=== PATIENT | female | born 1945 | race Caucasian/White ===

== ENCOUNTER 2022-12-29 06:57 | Day surgery (SDC) | payer MEDICARE, SELFPAY ==
--- NOTE | 2022-12-29 06:40 | HPE_ITS ---
Assessment and Plan Assessment and plan (1) Nuclear age-related cataract, left eye: Status: Acute Assessment and plan: Assessment: Visually significant cataract of the left eye. Plan: Cataract extraction with lens implantation of the left eye. History of Present Illness History of Present Illness Chief Complaint: Decreased vision, left eye Narrat mariel: The patient is a 76-year-old lady with history of progressive decreased vision of the left eye. She has previously undergone cataract surgery in the right eye at another location. She notes decreased vision at both distance and near with significant glare at night. She also has trouble doing near tasks such as cross stitching. On examination she was noted to have moderate nuclear cataract in the left eye with significant glare disability. The option of cataract surgery was offered to the patient and she wished to proceed. Review of Systems All systems reviewed & are unremarkable except as noted in HPI and below PFSH All Active Problems Nuclear age-related cataract, left eye (Acute) Medical History History of radioactive iodine thyroid ablation Hypothyroidism H/O fibromyositis Joint pain Varicose vein of leg Insomnia Psychophysiologis insomnia, sleep disorder Hypertension Hyperlipemia GERD (gastroesophageal reflux disease) Edema Dyspnea on exertion Diverticul disease small and large intestine, no perforati or abscess Disorder of magnesium metabolism Afib Anxiety Allergic rhinitis Surgical History History of tubal ligation History of tonsillectomy History of uterine suspension procedure H/O knee surgery H/O varicose vein ligation left leg S/P cataract surgery right eye History of colonoscopy Social History Smoking/Tobacco Use Status: Never Smoking risk assessment performed?: Yes Alcohol Intake: current Alcohol Intake frequency: holidays/special occasions only Alcohol type: wine Drug use: Never Substance use type: does not use Housing: house Do you feel safe at home: Yes Do you feel safe in your relationship?: Yes Meds Allergies and Home Medications Allergies Allergy/AdvReac Type Severity Reaction Status Date / Time amitriptyline Allergy Intermediate vision loss Verified 12/29/22 07:15 propranolol Allergy Intermediate head pain Verified 12/29/22 07:15 clarithromycin Allergy Unknown Per PCP Verified 12/29/22 07:15 latex Allergy Unknown Per PCP Verified 12/29/22 07:15 atorvastatin AdvReac Intermediate muscle pain Verified 12/29/22 07:15 simvastatin AdvReac Intermediate muscle pain Verified 12/29/22 07:15 Home Medications Medication Instructions Recorded Confirmed Type acetaminophen 325 mg capsule 325 mg PO BID PRN 12/27/22 12/29/22 History apixaban 5 mg tablet (Eliquis) 5 mg PO BID 12/27/22 12/29/22 History azelastine 137 mcg (0.1 %) nasal 1 spray intranasal BID 12/27/22 12/29/22 History spray aerosol citalopram 10 mg tablet (Celexa) 15 mg PO DAILY 12/27/22 12/29/22 History diclofenac sodium 1 % topical gel 1 applic topical QID 12/27/22 12/29/22 History (Arthritis Pain (diclofenac)) diltiazem HCl 180 mg 180 mg PO DIRECTED 12/27/22 12/29/22 History capsule,extended release 24 hr (Cardizem CD) hydrochlorothiazide 12.5 mg capsule 12.5 mg PO DAILY 12/27/22 12/29/22 History levothyroxine 100 mcg capsule 100 mcg PO DAILY 12/27/22 12/29/22 History lorazepam 0.5 mg tablet 0.5 mg PO TID PRN 12/27/22 12/29/22 History meclizine 25 mg tablet 25 mg PO TID PRN 12/27/22 12/29/22 History mirtazapine 7.5 mg tablet 7.5 mg PO QHS 12/27/22 12/29/22 History omeprazole 20 mg capsule,delayed 20 mg PO DAILY 12/27/22 12/29/22 History release rosuvastatin 5 mg tablet 5 mg PO DAILY 12/27/22 12/29/22 History zolpidem 5 mg tablet 5 mg PO QHS PRN 12/27/22 12/29/22 History Exam Eyes Other: Most recent ocular examination is significant for corrected visual acuity of 20/30 in the right eye, 20/40 in the left eye. Extract motility is normal. Intraocular pressure is 18 OU. Slit-lamp examination reveals a well-positioned PCIOL in the right eye with some posterior capsular opacity. In the left eye there is a moderate nuclear cataract with brunescent's. Funduscopic examination reveals disc cupping of 0.3 OU with normal vessels, macula, peripheral retina and vitreous. Resp Auscultation: clear to auscultation bilaterally Cardio Rate: regular rate Rhythm: regular rhythm
[2022-12-29 07:05] VITALS: BP 142/85; PULSE 89; RESP 20; TEMP 36.6; O2SAT 97
[2022-12-29] MEDS: Tropicam./Phenyleph. (1/2.5%) 5 ML BTL OS ×3 (07:15→07:27)
[2022-12-29 07:26] VITALS: BMI 31.1
--- NOTE | 2022-12-29 07:26 | W.ANESPRE ---
General Info Date of Service Date Performed: 12/29/22 Height: 5 ft 3.5 in Weight: 81.2 kg Body Mass Index (BMI): 31.1 Surgical Procedure: Operation Date: 12/29/22 08:40 Proposed Procedure Side Surgeon p Cataract Extraction with IOL Implant Left Norris Shine MD Meds Allergies and Home Medications Allergies Allergy/AdvReac Type Severity Reaction Status Date / Time amitriptyline Allergy Intermediate vision loss Verified 12/29/22 07:15 propranolol Allergy Intermediate head pain Verified 12/29/22 07:15 clarithromycin Allergy Unknown Per PCP Verified 12/29/22 07:15 latex Allergy Unknown Per PCP Verified 12/29/22 07:15 atorvastatin AdvReac Intermediate muscle pain Verified 12/29/22 07:15 simvastatin AdvReac Intermediate muscle pain Verified 12/29/22 07:15 Home Medication Medication Instructions Recorded acetaminophen 325 mg capsule 325 mg PO BID PRN 12/27/22 apixaban 5 mg tablet (Eliquis) 5 mg PO BID 12/27/22 azelastine 137 mcg (0.1 %) nasal 1 spray intranasal BID 12/27/22 spray aerosol citalopram 10 mg tablet (Celexa) 15 mg PO DAILY 12/27/22 diclofenac sodium 1 % topical gel 1 applic topical QID 12/27/22 (Arthritis Pain (diclofenac)) diltiazem HCl 180 mg 180 mg PO DIRECTED 12/27/22 capsule,extended release 24 hr (Cardizem CD) hydrochlorothiazide 12.5 mg capsule 12.5 mg PO DAILY 12/27/22 levothyroxine 100 mcg capsule 100 mcg PO DAILY 12/27/22 lorazepam 0.5 mg tablet 0.5 mg PO TID PRN 12/27/22 meclizine 25 mg tablet 25 mg PO TID PRN 12/27/22 mirtazapine 7.5 mg tablet 7.5 mg PO QHS 12/27/22 omeprazole 20 mg capsule,delayed 20 mg PO DAILY 12/27/22 release rosuvastatin 5 mg tablet 5 mg PO DAILY 12/27/22 zolpidem 5 mg tablet 5 mg PO QHS PRN 12/27/22 Current Visit Medications: Current Medications Generic Name Dose Route Start Last Admin Trade Name Freq PRN Reason Stop Dose Admin Acetaminophen 1,000 mg 12/29/22 06:00 Acetaminophen 500 Mg Tab PO 01/28/23 05:59 Q4H PRN PRN Balanced Salt Solution 500 ml 12/29/22 06:00 Balanced Salt Soln.-Plus 500 Ml Bag OP 01/28/23 05:59 DIRECTED GAMALIEL Miscellaneous Medication 0 ml 12/29/22 06:00 Prednisolone 1%, Moxifloxacin 0.5%, Nepafenac 0.1% 5ml Btl OS 01/28/23 05:59 DIRECTED GAMALIEL Miscellaneous Medication 0 ml 12/29/22 06:00 12/29/22 07:15 Tropicam./Phenyleph. (1/2.5%) 5 Ml Btl OS 01/28/23 05:59 1 drp DIRECTED GAMALIEL Administration Tetracaine HCl 0 ml 12/29/22 06:00 Tetracaine 0.5% 4 Ml Btl OS 01/28/23 05:59 DIRECTED GAMALIEL PFSH Active Problems Active Problems: Problem Status Onset Code Nuclear age-related cataract, left eye H25.12 Medical History Medical History History of radioactive iodine thyroid ablation Hypothyroidism H/O fibromyositis Joint pain Varicose vein of leg Insomnia Psychophysiologis insomnia, sleep disorder Hypertension Hyperlipemia GERD (gastroesophageal reflux disease) Edema Dyspnea on exertion Diverticul disease small and large intestine, no perforati or abscess Disorder of magnesium metabolism Afib Anxiety Allergic rhinitis Surgical History Surgical History History of tubal ligation History of tonsillectomy History of uterine suspension procedure H/O knee surgery H/O varicose vein ligation left leg S/P cataract surgery right eye History of colonoscopy Tobacco Smoking/Tobacco Use Status: Never Alcohol Alcohol Intake: current Alcohol intake frequency: holidays/special occasions only Alcohol type: wine Substance Use Substance use: Never Substance use type: does not use Vital Signs and Lab Results Vital Signs Most Recent Vital Signs in EMR: Most Recent Vital Signs Temp Pulse Resp BP Pulse Ox 36.6 C 89 20 142/85 H 97 12/29/22 07:05 12/29/22 07:05 12/29/22 07:05 12/29/22 07:05 12/29/22 07:05 Lab Results Blood Type / Crossmatch: No Data to Display Complete Blood Count: No Data to Display Complete Metabolic Panel: No Data to Display Liver Function Panel: No Data to Display Coagulation Panel: No Data to Display Cardiac Panel: No Data to Display Arterial Blood Gas: No Data to Display Venous Blood Gas: No Data to Display Pancreas Panel: No Data to Display Thyroid Panel: No Data to Display Infectious Disease: No Data to Display Blood Cultures: No Data to Display Toxicology Panel: No Data to Display Anesthesia Assessment and Plan Anesthesia History Personal History: No History of Anesthesia Complications and PONV Family History: No Family History of Anesthesia Complications Exercise Tolerance Exercise Tolerance: Metabolic Equivalents>4 Pertinent Negatives Pertinent Negatives: No Symptoms of GERD Cardiac & Pulmonary Exam Cardiac Exam: Normal S1/S2 Heart Sounds Pulmonary Exam: Clear Bilateral Breath Sounds Implantable Cardiac Device Does patient have a Pacemaker or an ICD?: No Airway Exam Known Difficult Airway: No Mallampati Class: 2 Mouth Opening: Normal (> 3cm) Thyromental Distance: Greater than 3 cm Neck Range of Motion: Full ROM Neck Circumference: Normal Teeth Condition: Normal Dentition ASA Classification ASA Score: ASA 2 Emergency Case?: No NPO Status NPO Status: NPO Clears >2 hours, Solids >8 hours Anesthesia Plan Resuscitation Status: Full Code Anesthesia Technique: MAC Anesthesia Airway Planned: Natural Airway Monitors Used: Standard Monitors
[2022-12-29] MEDS: Balanced Salt Soln.-PLUS 500 ML BAG OP (08:20)
[2022-12-29] MEDS: Tetracaine 0.5% 4 ML BTL OS (08:21)
[2022-12-29] MEDS: Lidocaine 1% Pres-Free 5 ML VIAL (08:22)
[2022-12-29] MEDS: Duovisc Viscoelastic System EACH 1 EACH (08:22)
[2022-12-29] MEDS: Povidone-Iodine Ophth 30 ML BTL (08:24)
[2022-12-29] MEDS: Phenylephrine/Lidocaine (15/10) MG/ML 1 ML VIAL (08:24)
[2022-12-29 08:37] VITALS: BP 123/89; PULSE 86; RESP 16; TEMP 36.5; O2SAT 95
--- NOTE | 2022-12-29 08:38 | W.PM.DSUDISC ---
Date of service: 12/29/22 Time of Service: 08:38 Discharge Plan Disposition Patient Disposition: Home Discharge Details Attending Provider: Norris Shine Primary Care Provider: Delma Lee Home Meds and New Rx's Prescriptions: No Action azelastine 137 mcg (0.1 %) aerosol,spray 1 spray intranasal BID Rx Instructions: administer into each nostril citalopram [Celexa] 10 mg tablet 15 mg PO DAILY diltiazem HCl [Cardizem CD] 180 mg capsule,extended release 24hr 180 mg PO DIRECTED Eliquis 5 mg tablet 5 mg PO BID hydrochlorothiazide 12.5 mg capsule 12.5 mg PO DAILY levothyroxine 100 mcg capsule 100 mcg PO DAILY lorazepam 0.5 mg tablet 0.5 mg PO TID PRN meclizine 25 mg tablet 25 mg PO TID PRN mirtazapine 7.5 mg tablet 7.5 mg PO QHS omeprazole 20 mg capsule,delayed release(DR/EC) 20 mg PO DAILY rosuvastatin 5 mg tablet 5 mg PO DAILY acetaminophen 325 mg capsule 325 mg PO BID PRN diclofenac sodium [Arthritis Pain (diclofenac)] 1 % gel 1 applic topical QID Rx Instructions: apply to single elbow, wrist or hand; for hand includes palm/fingers/back of hand zolpidem 5 mg tablet 5 mg PO QHS PRN Discharge Instructions Stand Alone Forms: Post-op Topical Cataract, Ron Patel (DSU) Discharge Orders Discharge Orders: Discharge Order (Routine); Ordered 12/29/22 Ordered By: Norris Shine DS: Diagnosis Discharge Diagnosis (1) Nuclear age-related cataract, left eye: Status: Resolved
--- NOTE | 2022-12-29 08:39 | W.PM.OP ---
Date of service: 12/29/22 Time of Service: 08:39 Operative Note Operative Note DATE OF PROCEDURE: 12/29/22 PRE-OP DIAGNOSIS: Nuclear cataract, left eye POST-OP DIAGNOSIS: same PROCEDURE: Cataract extraction using phacoemulsification with intraocular lens implant, left eye SURGEON: Norris Shine ANESTHESIA TYPE: Local By Surgeon and MAC Refer to Anesthesia Record PATHOLOGY: none sent COMPLICATIONS: None Patient was transported to: same day Patient's condition: stable Implants: Rodney Clareon [id number] Indications: Progressive decreased vision due to cataract, left eye Procedure Description: CATARACT SURGERY OPERATIVE REPORT PREOPERATIVE DIAGNOSIS: Nuclear cataract, left eye POSTOPERATIVE DIAGNOSIS: Same OPERATION: Cataract extraction using phacoemulsification with posterior chamber intraocular lens implant, left eye. IOL: IOL Metal Polisher/Model: Rodney Clareon [id number] IOL Power: + 18.0 diopters IOL Serial Number: [id number] Optic Diameter: 6.0mm Haptic/Overall Diameter: 13.0mm PHACO INFO: Rodney [employer]urion Vision System with OZil and Active Fluidics Cumulative Dispersed Energy (CDE): 7.26 seconds SURGEON: Norris Shine MD, MARBELLA ANESTHESIA: Monitored Anesthesia Care (MAC), with local sub-tenon's anesthetic infiltration COMPLICATIONS: None SPECIMENS: None INDICATIONS FOR PROCEDURE: The patient is a 77-year-old lady who previously underwent cataract surgery in the right eye several years ago in a different location. She has now developed a significant nuclear cataract in the left eye that she desires cataract surgery and attempt to improve and maximize her vision. See office notes for detailed information. PROCEDURE: The correct surgical eye was identified and marked as the left eye and the pupil was dilated in the preoperative area using mydriatics and cycloplegics. The dilated pupil size was 7.0 mm. Oral sedation was administered in the form of an Imprimis MKO Melt (midazolam 3mg/ketamine 25mg/ondansetron 2mg). The patient was brought to the operating room where cardiopulmonary monitoring was instituted and surgical time-out was performed, confirming the correct operative eye and IOL power. Topical anesthesia was administered and ophthalmic povidone-iodine 5% was instilled into the conjunctival fornices. The fatuma-ocular area was prepped with Betadine 10% solution and draped in the usual sterile fashion for intraocular surgery, including an aperture drape. A Tegaderm transparent film dressing was cut in half and used to cover the lashes and lid margins. Care was taken to sequester the lashes and lid margins under the Tegaderm dressing. A lid speculum was placed between the lids of the operative eye and the Ordney LuxOR Revalia operating microscope was maneuvered into position. Jose scissors were then used to make a conjunctival buttonhole approximately 6mm posterior to the limbus in the inferonasal quadrant. Blunt dissection was carried out to expose bare sclera, and a blunt-tipped sub-tenon?s anesthesia cannula was introduced and passed posteriorly along the globe where non-preserved plain lidocaine was injected into posterior sub-Tenon?s space. A sideport knife was used to make a paracentesis port. Intraocular phenylephrine/lidocaine was injected into the anterior chamber. The anterior chamber was then filled with viscoelastic. A keratome knife was used construct a two-plane clear corneal tunnel extending 2.0mm into clear cornea. A flap was raised on the anterior capsule and capsulorhexis forceps were used to complete a continuous curvilinear capsulorhexis of 5.0 mm. Balanced salt solution was then used to perform cortical cleaving hydrodissection and nuclear hydrodelineation until the lens could be freely rotated within the capsular bag. The lens nucleus was then disassembled and removed within the capsular bag and iris plane using phacoemulsification. Residual cortical material was removed using the irrigation/aspiration handpiece. The posterior capsule was carefully polished to remove as much residual lens epithelial cells as safely possible. The capsular bag was then inflated and the anterior chamber deepened with viscoelastic. The lens implant described above was inserted into the capsular bag using the Rodney Autonome Injector. A Kuglen hook was used to dial the IOL into position. Residual viscoelastic was then removed first from posterior to the IOL, then from the anterior chamber using the I/A handpiece. The lens implant was noted to center nicely within the capsular bag. The incisions were stromally hydrated, and the anterior chamber was reformed using BSS. Then 0.5cc of moxifloxacin 1.0mg/ml were injected into the capsular bag and anterior chamber. The incisions were checked with a Weck spear and found to be secure. Several drops of ophthalmic povidone-iodine 5% were then applied to the eye followed by two drops of Imprimis combination prednisolone/moxifloxacin/nepafenac solution. The drapes were removed and a clear plastic protective eye shield was placed over the eye. The patient was then returned to [facility] Day Surgery in stable condition.
--- NOTE | 2022-12-29 08:46 | W.ANESPOSTOP ---
Postoperative Evaluation Date, Time and Location Date Performed: 12/29/22 Time Performed: 08:46 Patient Location: Day Surgery Unit Vital Signs Most Recent Imported Vital Signs: Most Recent Vital Signs Temp Pulse Resp BP Pulse Ox 36.6 C 89 20 142/85 H 97 12/29/22 07:05 12/29/22 07:05 12/29/22 07:05 12/29/22 07:05 12/29/22 07:05 Assessment Mental Status: Awake (Alert & Oriented to Patient Baseline) Airway and Respiratory Function: Patent airway with normal (patient baseline) respiratory exam Cardiovascular Function: Hemodynamically Stable Hydration Status: Adequately Hydrated Nausea & Vomiting: No Nausea or Vomiting Pain: Pt. Denies Any Pain Peripheral Nerve Block: Patient did not receive a nerve block
[2022-12-29 09:04] VITALS: BP 121/65; PULSE 96; RESP 16; TEMP 36.4; O2SAT 89
== END 2022-12-29 09:10 | disposition home or self-care (01) ==
LOC: SUR 06:58
PROVIDERS: PCP Internal Medicine; Visit Provider Ophthalmology
PROC: (CPT 66984; principal; 2022-12-29 08:30)
DX: H25.12 Age-related nuclear cataract, left eye (principal); K21.9 Gastro-esophageal reflux disease without esophagitis; I10 Essential (primary) hypertension; Z98.41 Cataract extraction status, right eye
CPT/HCPCS: 66984; 00123; V2632